=== PATIENT | male | born 1960 | race African-American/Black ===

== ENCOUNTER 2023-01-09 16:26 | Emergency (ER) | payer OTHER, SELFPAY ==
[~2023-01-09 16:26] MED LIST: Iopamidol-370 76% 500 ML MDV (1 ML CHARGE) ONE
[2023-01-09 16:43] LABS: #Basophils 0.1 thou/uL (0.0-0.2); #Monocytes 0.3 thou/uL (0.11-0.59); #Neutrophils 11.3 thou/uL (1.40-6.50); %Basophils 0.5 % (0.0-1.0); %Eosinophils 0.1 % (0.0-10.0); %Lymphocytes 14.9 % (21.0-51.0); %Monocytes 2.3 % (0.0-10.0); %Neutrophils 77.5 % (42.0-75.0); Hemoglobin 10.8 g/dL (14.0-18.0); Mean Corpuscular HGB CONC 33.3 g/dL (32.0-36.0); Mean Corpuscular Hemoglobin 34.3 pg (27.0-31.0); Mean Corpuscular Volume 102.9 fl (78.0-98.0); Mean Platelet Volume 8.6 fL (7.4-10.4); Platelet Count 263 10x3/uL (130-400); RBC Distribution Width 15.7 % (11.5-14.5); Red Blood Cell (RBC) Count 3.15 mill/uL (4.70-6.10); White Blood Cell (WBC) Count 14.6 10x3/uL (4.8-10.8)
[2023-01-09] MEDS ORDERED: fentaNYL 50 mcg/mL 1 mL Vial ONE ×2 (16:53→17:53)
[2023-01-09 16:57] LABS: INR-International Normal Ratio 1.5; Prothrombin Time 18.7 sec (12.0-14.7)
[2023-01-09 16:58] LABS: PTT 24.9 sec (22.9-36.1)
[2023-01-09] MEDS ORDERED: Boostrix 0.5 ML (Tdap) VIAL (>/=7 yrs of age) ONE (17:02)
[2023-01-09] MEDS ORDERED: Ondansetron PF 4 MG/2 ML Vial ONE (17:02)
[2023-01-09] MEDS ORDERED: CEFAZOLIN 2 GM VIAL ONE (17:02)
[2023-01-09 17:07] LABS: ALT (SGPT) 24 U/L (8-55); AST (SGOT) 37 U/L (5-34); Alkaline Phosphatase 57 U/L (40-110); Anion Gap 24 mmol/L (10-20); BUN (Urea Nitrogen) 28 mg/dL (8.4-25.7); Bilirubin, Total 0.2 mg/dL (0.2-1.2); Calc. Creatinine Clearance 0 mL/min (70-130); Chloride 108 mmol/L (98-107); Estimated GFR 22; Globulin 3.1 g/dL (2.4-3.5); Glucose 124 mg/dL (80-115); Potassium 3.5 mmol/L (3.5-5.1); Protein, Total 7.1 g/dL (5.8-8.1); Sodium 136 mmol/L (136-145)
[2023-01-09 17:13] LABS: Calcium 6.4 mg/dL (7.8-10.44); Carbon Dioxide 8 mmol/L (23-31)
[2023-01-09 17:17] LABS: Alcohol Less than 10 mg/dL (Less than 10); Lipase 15 U/L (8-78)
[2023-01-09 17:23] LABS: Analyzer IN Cardio ER; Base Excess -18.6 mEq/L (-2.0 to +3.0); Chloride (VBG) 107 mmol/L (98-106); Hematocrit-VBG 36 % (42.0-52.0); Hemoglobin (Hb) 12.3 g/dL (13.1-17.2); Potassium (VBG) 3.14 mmol/L (3.70-5.30); Sodium 132.7 mmol/L (133-146)
[2023-01-09 17:25] LABS: pH (venous) 7.134 (7.32-7.43)
[2023-01-09 17:26] LABS: Calcium, Ionized (venous) 0.78 mmol/L (1.16-1.32)
[2023-01-09] MEDS ORDERED: levETIRAcetam 500 MG/5 ML VIAL ONE ×2 (17:36→19:23)
[2023-01-09] MEDS ORDERED: Calcium Chloride 1 GM/10 ML Abboject SYRINGE ONE (17:36)
[2023-01-09 17:45] LABS: #Basophils 0.1 thou/uL (0.0-0.2); #Monocytes 0.4 thou/uL (0.11-0.59); #Neutrophils 25.5 thou/uL (1.40-6.50); %Basophils 0.3 % (0.0-1.0); %Lymphocytes 2.5 % (21.0-51.0); %Monocytes 1.6 % (0.0-10.0); Hemoglobin 12.9 g/dL (14.0-18.0); Mean Corpuscular HGB CONC 34.3 g/dL (32.0-36.0); Mean Corpuscular Hemoglobin 32.7 pg (27.0-31.0); Mean Platelet Volume 10.9 fL (7.4-10.4); Platelet Count 202 10x3/uL (130-400); RBC Distribution Width 16.2 % (11.5-14.5); Red Blood Cell (RBC) Count 3.95 mill/uL (4.70-6.10)
[2023-01-09] MEDS ORDERED: Midazolam HCl 2 mg/2 ml Vial ONE (17:53)
[2023-01-09] MEDS ORDERED: Fentanyl CADD 100 ML IV SCH (18:00)
[2023-01-09 18:01] LABS: Analyzer IN Cardio ER; Base Excess (BEa) -14.4 mEq/L (-2.0 to +3.0); Calcium, Ionized (arterial) 1.55 mmol/L (1.12-1.30); Carboxyhemoglobin (COHb) 0.3 gm% (0.0-3.0); Hematocrit-ABG 38 % (42.0-52.0); O2 Tension (PaO2), arterial 423.1 mmHg (> 80.0); Potassium - ABG Lab 2.78 mmol/L (3.70-5.30); pH, Arterial 7.281 (7.35-7.45)
[2023-01-09 18:06] LABS: Mean Corpuscular Volume 95.2 fl (78.0-98.0); White Blood Cell (WBC) Count 27.5 10x3/uL (4.8-10.8)
[2023-01-09 18:15] LABS: Puncture Site RFA
[2023-01-09 18:16] LABS: ALV-art Gradient 262.025 mmHg (0-20)
[2023-01-09 18:33] LABS: Bacteria/HPF 4+ HPF (None Seen); Bilirubin Negative (Negative); Blood, Urine 3+ (Negative); Clarity Turbid (Clear); Glucose, Urine (Dipstick) Normal (Negative); Ketone, Urine Negative (Negative); Leukocyte 500 Leu/uL (Negative); Nitrite Negative (Negative); Protein, Urine (Dipstick) 70 mg/dL (Neg-Trace); Specific Gravity, Urine 1.015 (1.002-1.036); Squamous Epithelial 0-3 HPF (0-3); Urobilinogen Normal mg/dL (Less than 2); WBC/HPF Greater than 50 HPF (0-3)
[2023-01-09 18:35] LABS: Anisocytosis SLIGHT = 6-15 cells HPF (0-5); Band 15 % (5-11); CellaVision Operator ID LAB.KB; Lymphocytes 1 % (21-51); Macrocytosis MODERATE=16-30 cells HPF (0-5); Monocytes 3 % (0-10); Neutrophil 80 % (42-75); Platelet Morphology Comment Platelets Normal; Poikilocytosis SLIGHT = 6-15 cells HPF (0-5); Target Cells SLIGHT = 2-5 cells HPF (0-1); Total Cell Count 100
[2023-01-09 18:43] LABS: Carbamazepine-Tegretol Less than 1.9 ug/mL (4.0-12.0)
[2023-01-09 18:51] LABS: Amphetamine Not Detected (NotDetected); Barbiturates Screen Not Detected (NotDetected); Benzodiazepine Screen Not Detected (NotDetected); Cocaine Metabolite Screen Not Detected (NotDetected); Methadone Not Detected (NotDetected); Methamphetamine Not Detected (NotDetected); Opiate Screen Not Detected (NotDetected); Oxycodone Screen Not Detected (NotDetected); Phencyclidine (PCP) Not Detected (NotDetected); THC/Cannabinoid Screen Not Detected (NotDetected); Tricyclic Screen Not Detected (NotDetected)
[2023-01-09] MEDS ORDERED: Meropenem 1 GM in Sodium Chloride 0.9% 100 ML IVPB SCH (19:30)
[2023-01-09] MEDS ORDERED: Propofol 1,000 MG/100 ML VIAL IV ONE (19:32)
[2023-01-09] MEDS ORDERED: Vancomycin 1 GM/200 ML (FROZEN) BAG ONE (19:47)
[2023-01-09 20:16] LABS: CKMB 6.6 ng/mL (0-6.6)
[2023-01-09 21:07] LABS: Lactic Acid 4.4 mmol/L (0.5-2.2)
[2023-01-12 14:39] LABS: Actual Bicarbonate (HCO3a) 10.3 mEq/L (22-28); CO2 Tension 22.3 mmHg (35.0-45.0)
== END 2023-01-09 21:23 | disposition short-term general hospital (02) ==
LOC: ERS 16:26
DX: Z04.1 Encounter for examination and observation following transport accident (principal); R41.82 Altered mental status, unspecified; N17.9 Acute kidney failure, unspecified; R56.9 Unspecified convulsions; E87.20 Acidosis, unspecified; Z23 Encounter for immunization
CPT/HCPCS: 36415; 36430; 36600; 70450; 71045; 71260; 72125; 74177; 80053; 80156; 80164; 80306; 80307; 81003; 81015; 82553; 82805; 83605; 83690; 84146; 84484; 85025; 85610; 85730; 86850; 86900; 86901; 87040; 87077; 87086; 87186; 90471; 90715; 93005; 94002; 94760; 96361; 96365; 96366; 96367; 96368; 96375; 96376; G0390; J1953; J2185; J2250; J2405; J2704; J3010; J3370-JW; J3490; P9016; Q9967